=== PATIENT | male | born 1955 | race Caucasian/White ===

== ENCOUNTER 2017-02-11 05:39 | Emergency (ER) | payer BC ==
[~2017-02-11] VITALS: Ht 188 cm; Wt 104.3 kg
[~2017-02-11 05:39] MED LIST: KEFLEX500 MG ORAL
[2017-02-11] MEDS ORDERED: LEXAPRO10 MG ORAL (05:53)
[2017-02-11 06:00] VITALS: BP 162/112
[2017-02-11] MEDS ORDERED: Oxycodone/Acetaminophen 5-325 ORAL ONE (06:00)
[2017-02-11] MEDS ORDERED: Lidocaine 1% Plain 30 ml INJ ONE (06:15)
[2017-02-11 06:54] VITALS: BP 159/108
--- NOTE | 2017-02-11 08:38 | Diagnostic Imaging Report ---
Indications: Right hip pain, status post closed reduction of dislocated fourth proximal interphalangeal joint Technique: 3 views right hand at 0636 Findings: Comparison: 0613 Fourth proximal and middle phalanges now anatomically aligned. Surrounding soft tissues are swollen. No fracture or other acute change identified. IMPRESSION: Anatomic closed reduction of dislocated fourth proximal interphalangeal joint
--- NOTE | 2017-02-11 09:16 | Diagnostic Imaging Report ---
Indications: Right hand trauma, pain Technique: 3 views right hand Findings: Comparison: None The fourth middle phalanx demonstrates complete bone width dorsal ulnar displacement relative to the proximal phalanx with mild overriding. Surrounding soft tissues are swollen. No fracture, foreign body, soft tissue gas or other acute change identified. IMPRESSION: Dislocated fourth proximal interphalangeal joint
--- NOTE | 2017-02-12 15:03 | Emergency Room Report ---
History of Present Illness General Chief Complaint: Multiple Trauma/Fall Source: Patient Present Illness HPI 61YOM walkin with pain to right 4th finger after "doing martial arts" to "impress some ladies." Noted deformity to right ring finger, cant bend at PIP. No prior injury to hand. No other pain anywhere else. Allergies: Coded Allergies: No Known Allergies (Unverified , 03/23/15) Patient History Past Medical History: none Past Surgical History: none Pertinent Family History: none Social History: Denies: alcohol use, drug use, smoking Immunizations: UTD Reviewed Nursing Documentation: PMH: Agreed, PSxH: Agreed Nursing Documentation-PMH Past Medical History: No History, Except For History Of Psychiatric Problem: Yes - Anxiety, depression Review of Systems All Other Systems: negative except mentioned in HPI Physical Exam Vital Signs Date Time Temp Pulse Resp B/P Pulse Ox O2 Delivery O2 Flow Rate FiO2 02/11/17 05:47 87 14 162/112 96 Room Air 02/11/17 06:00 98.5 Sp02 EP Interpretation: reviewed, normal General Appearance: normal inspection, well appearing, no apparent distress, alert Head: atraumatic ENT: normal ENT inspection, hearing grossly normal, normal voice Neck: normal inspection, full range of motion, supple, no bony tend Respiratory: normal inspection, lungs clear, normal breath sounds, no respiratory distress, no retraction, no wheezing Cardiovascular #1: regular rate, rhythm, no edema Gastrointestinal: normal inspection, normal bowel sounds, non tender, soft, no guarding, no hernia Genitourinary: no CVA tenderness Musculoskeletal: normal inspection, back normal, normal range of motion, Latoya' s Sign negative, other - Right hand: obvious deformity of right 4th finger, ulnarly displaced finger distal to PIP. Dorsal displacement of this segment. Unable to flex at the PIP. Sensation intact. No ttp to other fingers, hand Neurologic: normal inspection, alert, oriented x3, responsive, conditioner tumbler III-XII nml as tested, motor strength/tone normal, speech normal Psychiatric: normal inspection, judgement/insight normal, mood/affect normal Procedures Joint Reduction Joint Reduction : Consent: Verbal Joint Reduction Site: other - Right 4th PIP joint dislocation Procedural Sedation: No Reduction Attempts: One Pre-Procedure NV Exam: Yes Post-Procedure NV Exam: Yes Post Joint Reduction Film: joint reduced Patient Tolerated: Well Complications: None Progress Patient seated upright Digital nerve block done (see additional procedure note) With mild traction, distal 4th finger pulled ulnarly and out with immediate reduction Finger splinted in extension Additional Procedure Procedure Narrative Right 4th finger (ring) Area of dorsal MCP both sides cleaned with alcohol prep 1% lidocaine 3cc wheel raised on both sides Appropriate anesthesia obtained after a few minutes Medical Decision Making Diagnostic Impression: Primary Impression: Dislocation, finger closed Qualified Codes: S63.259A - Unspecified dislocation of unspecified finger, initial encounter ER Course right ring ringer PIP dislocation now s/p reduction in ED See procedure notes and ED review of Xrays, pre- and post-reduction Finger splinted in extension DC home with Orthopediscs followup Keep splint on until evaluated by Ortho Other X-Ray Diagnostic Results X-Ray ordered: Right hand # of Views/Limited Vs Complete: 3 View Interpretation: no fractures, no soft tissue swelling Indication: Pain Impression: Other - right 4th finger dorsal, ulnar dislocation of PIP Date Electronically Signed: Feb 11, 2017 Time Electronically Signed: 06:20 Interpreting ER Physician: Tania CT/MRI/US Diagnostic Results CT/MRI/US Diagnostic Results : Imaging Test Ordered: Right hand xray Impression 3 views ED interpretation Interval reduction in right 4th finger dislocation No fracture or soft tissue swelling Last Vital Signs Date Time Temp Pulse Resp B/P Pulse Ox O2 Delivery O2 Flow Rate FiO2 02/11/17 06:54 98.5 81 16 159/108 97 Room Air Status: improved Disposition: HOME, SELF-CARE Condition: Improved Patient Instructions: Finger or Thumb Dislocation Additional Instructions: - Keep finger in splint until evaluated by orthopedist ASIA MARQUIS M.D. Feb 12, 2017 15:03
== END 2017-02-11 06:56 | disposition home or self-care (01) ==
LOC: EMR 06:12
DX: M79.644 Pain in right finger(s) (principal); S63.264A Dislocation of metacarpophalangeal joint of right ring finger, initial encounter; Y93.75 Activity, martial arts; Y92.89 Other specified places as the place of occurrence of the external cause
CPT/HCPCS: 29130; 73130; 99284; J2001